=== PATIENT | male | born 1960 | race Caucasian/White ===

== ENCOUNTER → 2016-10-12 | Outpatient (CLI) | payer OTHER ==
[~2016-10-12] MED LIST: CHOL200014 PO; CYAN500T20 PO; HYDR-3811 PO; LOSA1TAB15 PO; OMG1KC PO; methylPREDNISolone 80 MG/ML (DEPO MEDROL) VIAL IM ONE
--- NOTE | 2016-10-12 10:38 | PAIN MANAGEMENT ---
Date of note: 10/12/2016 Procedure: Epidural steroid injection under fluoroscopy Fluoroscopy exposure time: 23 seconds This is a 55-year-old patient of Dr. Rodrigue Gould. The patient presents with sciatica and lumbar radicular symptoms of the left leg in the dermatome level of L5-S1. Informed consent was achieved for an epidural steroid injection under fluoroscopy at L5-S1. Orders for procedure verified. Patient denies any bleeding tendencies. After informed consent obtained, the patient was positioned for the lumbar epidural steroid injection. The area was prepped and draped using aseptic technique. The skin and overlying tissues were localized using 3 mL of 1% Preservative-Free lidocaine using a 25-gauge 1.5-inch needle. A 20-gauge Tuohy needle was advanced, using "loss of resistance" technique, to the epidural space. No blood, cerebral spinal fluid, pain, or paresthesia noted on entry of the epidural space. A 1 mL solution of Depo-Medrol 80 mg was injected slowly without mass volume effect. The patient was placed in supine position 15 minutes prior to being released with proper leg strength and vitals. Pre- and post procedure vital signs stable with no sensory or motor deficit noted. Instruction on followup contact and care provided to the patient.
== END ==
LOC: PMC 07:23 → EDSTATUS 07:30
PROVIDERS: ATTEND Family Medicine
DX: M54.16 Radiculopathy, lumbar region (principal); M54.32 Sciatica, left side
CPT/HCPCS: 62323; J1040

== ENCOUNTER → 2016-11-01 | Outpatient (CLI) | payer OTHER ==
--- NOTE | 2016-11-01 08:32 | PAIN MANAGEMENT ---
Date of note: 11/01/2016 PROCEDURE: L5-S1 Lumbar epidural injection under fluoroscopy. TOTAL FLUOROSCOPIC TIME: 18 seconds. This is a 55-year-old patient of Dr. Rodrigue Gould. The patient presents with lumbar radicular symptoms in the left leg in the dermatome level of L5. Informed consent was achieved for an epidural steroid injection under fluoro. He was placed in the left lateral decubitus position. Orders for procedure verified. Patient denies any bleeding tendencies. After informed consent obtained, the patient was positioned for the lumbar epidural steroid injection. The area was prepped and draped using aseptic technique. The skin and overlying tissues were localized using 3 mL of 1% Preservative-Free lidocaine using a 25-gauge 1.5-inch needle. A 20-gauge Tuohy needle was advanced, using "loss of resistance" technique, to the epidural space. No blood, cerebral spinal fluid, pain, or paresthesia noted on entry of the epidural space. A 1 mL solution of Depo-Medrol 80 mg was injected slowly without mass volume effect. The patient was placed in supine position 15 minutes prior to being released with proper leg strength and vitals. Pre- and post procedure vital signs stable with no sensory or motor deficit noted. Instruction on followup contact and care provided to the patient.
== END ==
LOC: PMC 06:27
PROVIDERS: ATTEND Family Medicine
PROC: 3E0R33Z Introduction of Anti-inflammatory into Spinal Canal, Percutaneous Approach (ICD-10-PCS; principal; 2016-11-01)
PROC: B01BZZZ Fluoroscopy of Spinal Cord (ICD-10-PCS; 2016-11-01)
DX: M54.9 Dorsalgia, unspecified (principal); M54.16 Radiculopathy, lumbar region
CPT/HCPCS: 62323; J1040